=== PATIENT | male | born 1970 | race Caucasian/White ===

== ENCOUNTER 2025-02-05 09:15 | Outpatient (RCR) | payer OTHER, MEDICARE, SELFPAY ==
[2025-02-05 11:07] LABS: Glucose - Point of Care 428 mg/dl (70-99)
== END 2025-02-05 23:59 | disposition home or self-care (01) ==
LOC: CRHB 09:15
PROVIDERS: ATTENDING PHYSICIAN Internal Medicine Cardiovascular Disease
DX: I25.10 Atherosclerotic heart disease of native coronary artery without angina pectoris (principal); Z95.5 Presence of coronary angioplasty implant and graft; I25.2 Old myocardial infarction; E78.5 Hyperlipidemia, unspecified; Z87.891 Personal history of nicotine dependence
CPT/HCPCS: 82962; G0422; G0423